=== PATIENT | female | born 1960 | race Caucasian/White ===

== ENCOUNTER 2017-07-06 15:44 | Outpatient (CLI) | payer BC ==
--- NOTE | 2017-07-06 17:28 | MMO ---
BILATERAL MAMMOGRAMS: DATE: 07/06/17 HISTORY: Screening mammography. COMPARISON: 06/19/14 and 07/01/16. FINDINGS: Heterogeneously dense fibroglandular tissue and benign-appearing calcifications are again demonstrat ed. Metallic markers in the left breast indicate areas of prior biopsy. There is no new dominant mas s or suspicious calcifications. The study was evaluated with the assistance of computer-aided detection. IMPRESSION: BIRADS 1: Negative Suggest routine follow-up. POS: NIURKA
== END 2017-07-06 15:45 | disposition home or self-care (01) ==
LOC: SCSMAMMO 15:44
PROVIDERS: ATTEND Obstetrics & Gynecology
DX: Z12.31 Encounter for screening mammogram for malignant neoplasm of breast (principal)
CPT/HCPCS: 77067; G0202

== ENCOUNTER 2018-07-29 10:15 | Outpatient (CLI) | payer BC ==
--- NOTE | 2018-07-29 11:07 | MMO ---
BILATERAL SCREENING MAMMOGRAM: Date: 07/29/18 HISTORY: 58-year-old female. Routine screening mammography. COMPARISON: 06/19/14, 06/25/15, 07/01/15, 07/06/17. TECHNIQUE: CC and MLO views of both breasts are submitted for interpretation. This patient's mammogram was reviewed with the assistance of computer-aided detection. FINDINGS: The breasts are composed of heterogeneously dense fibroglandular tissue, which limits the sensitivity of mammography in the detection of underlying malignancy. Bilaterally, no suspicious dominant mass, architectural distortion, or suspicious calcification. Benign-appearing calcifications right breast. Two separate biopsy clips in the left breast. IMPRESSION: BIRADS 2: Benign Finding(s) RECOMMENDATION: Annual mammogram. POS: NIURKA
== END 2018-07-29 10:16 | disposition home or self-care (01) ==
LOC: SCSMAMMO 10:15
PROVIDERS: ATTEND Obstetrics & Gynecology
DX: Z12.31 Encounter for screening mammogram for malignant neoplasm of breast (principal)
CPT/HCPCS: 77067

== ENCOUNTER 2020-11-13 14:14 | Outpatient (CLI) | payer BC ==
--- NOTE | 2020-11-13 14:52 | BD ---
Exam: DEXA Bone Density 11/13/20 HISTORY: Postmenopausal. Lumbar Spine: BMD (g/cm2) T-SCORE L1 1.303 +2.8 L2 1.460 +3.9 L3 1.542 +4.2 L4 1.473 +3.7 L1-L4 1.450 +3.7 Left Femoral Neck: 1.0 +1.4 Total Femur: 1.158 +1.8 Impression: Normal bone mineral density of the lumbar spine and left femoral neck. POS: DEBORAH
== END 2020-11-13 14:15 | disposition home or self-care (01) ==
LOC: BICMAMMO 14:14
PROVIDERS: ATTEND Student in an Organized Health Care Education/Training Program
DX: Z13.820 Encounter for screening for osteoporosis (principal)
CPT/HCPCS: 77080

== ENCOUNTER 2023-08-25 09:11 | Outpatient (CLI) | payer BC | END 2023-08-25 09:12 | disposition home or self-care (01) | LOC: NM 09:11 | PROVIDERS: ATTEND Psychiatry & Neurology Neurology | DX: R25.1 Tremor, unspecified (principal); R29.898 Other symptoms and signs involving the musculoskeletal system | CPT/HCPCS: 78803; A9584 ==